=== PATIENT | female | born 1955 | race Caucasian/White ===

== ENCOUNTER 2017-01-04 06:45 | Inpatient (IN) | payer OTHER ==
--- NOTE | 2017-01-04 06:56 | EDPHY ---
H & P Time Seen by Provider: 01/04/17 06:55 - Personal History Tetanus Vaccine Date: < 10 YEARS Constitutional: Initial Vital Signs Temperature (C) 38.1 C 01/04/17 06:57 Heart Rate 75 01/04/17 06:57 Respiratory Rate 20 01/04/17 06:57 Blood Pressure 147/84 H 01/04/17 06:57 O2 Sat (%) 93 01/04/17 06:57 O2 Delivery Mode Nasal Cannula O2 (L/minute) 2 Allergies/Adverse Reactions: No Known Allergies Allergy (Verified 01/04/17 06:53) Home Medications: Medication Instructions Recorded Cymbalta 01/04/17 GABAPENTIN 01/04/17 Methylphenidate HCl [Ritalin 5mg 01/04/17 (*)] Nucynta 01/04/17 traMADol 01/04/17 Medical Decision Making - Diagnostics Imaging Results: Imaging Impressions Femur X-Ray 01/04/17 07:02 Impression: Left femoral neck fracture. ED Course/Re-evaluation: CHIEF COMPLAINT: Fall, hip pain HISTORY OF PRESENT ILLNESS: This patient is a 61 year old female who presents to the Emergency Department following a mechanical fall last night at approximately 2100 and presents today complaining of left hip pain. She reports that she was cleaning her house when she fell. It is unclear what caused her to fall but she denies dizziness or syncope and believes she may have tripped on her shag rug. She denies loss of consciousness or head trauma. Upon arrival, she complains of persistent left hip pain. She denies any additional injuries. She denies alcohol use within the last 24 hours. REVIEW OF SYSTEMS: A 10 point review of systems was performed and is negative with the exception of the elements mentioned in the history of present illness. PHYSICAL EXAM: HR 75, BP 147/84, O2 Sat 93, RR 20. Temp noted General Appearance: Alert, well hydrated, mildly slurred speech, and non-toxic appearing. Head: Atraumatic without scalp tenderness or obvious injury Eyes: Pupils equal, round, reactive to light and accommodation, EOMI, no trauma , no injection. Ears: Clear bilaterally, no perforation, normal landmarks Nose: Atraumatic, no rhinorrhea, clear. Throat: There is no erythema or exudates, no lesions, normal tonsils, mucus membranes moist. Neck: Supple, 2+ carotid upstroke, nontender, no lymphadenopathy. Respiratory: No retractions, no distress, no wheezes, and no accessory muscle use. Lungs are clear to auscultation bilaterally. Cardiovascular: Regular rate and rhythm, no murmurs, rubs, or gallops. Bilateral carotid, radial, dorsalis pedis, and posterior tibial pulses intact. Good capillary refill all extremities. Gastrointestinal: Abdomen is soft, nontender, non-distended, no masses, no rebound, no guarding, no peritoneal signs. Musculoskeletal: Limited ROM to left lower extremity secondary to pain. Tenderness over the left hip joint. Neurological: Alert, appropriate, and interactive. The patient has normal DTRs and non-focal cranial nerves, motor, sensory, and cerebellar exam. Skin: No rashes, good turgor, no nodules on palpation. Past medical history: Chronic pain, hypertension, hypercholesteremia. Past surgical history: Denies. Family history: Non-contributory. Social history: Lives alone independently. Denies alcohol use within the last 24 hours. DIFFERENTIAL DIAGNOSIS: The differential diagnosis for the patient's trauma included but was not limited to intracranial injury, long bone and pelvic bone fractures, spinal injury, intra-abdominal injury, and intra-thoracic injury. EKG INTERPRETATION: The 12 lead EKG was interpreted by myself: Sinus rhythm, rate 71; no ischemic changes. See hard copy and/or "tracemaster" electronic copy for interpretation. MEDICAL DECISION MAKING: This patient is a 61 year old female who presents complaining of left hip pain secondary to a fall last night at 2100. She is unable to provide a clear picture of what caused her to fall; when pressed, she refers to possibly tripping on a rug in her bathroom. She denies any syncope or dizziness prior to the fall. She does not present with any additional injuries. Though she denies alcohol use, her speech is mildly slurred and suggestive of possible intoxication. On exam, she presents with left hip tenderness limiting her range of motion to her LLE. There is no evidence of additional injury. Plan for x-ray of the left hip. Will proceed with labs and urinalysis with tox screen. 2mg IV morphine and 2L IV NS administered. 750: Imaging results reviewed and indicate left femoral neck fracture. Plan for consultation with orthopedic surgeon and subsequent admission to the hospitalist. EKG and chest x-ray ordered. 800: Consultation with Dr. Sahara Fields, hospitalist, who accepts admission to med/surg. 812: Consultation with Dr. Uriel Yeager, orthopedic surgeon. 1mg IV Dilaudid administered for pain prior to admission. - Data Points Laboratory Results: Laboratory Results 01/04/17 07:50 01/04/17 07:50 01/04/17 01/04/17 01/04/17 07:50 07:50 07:50 WBC 13.44 10^3/uL H 10^3/uL (3.80-9.50) RBC 4.72 10^6/uL 10^6/uL (4.18-5.33) Hgb 13.1 g/dL g/dL (12.6-16.3) Hct 37.6 % L % (38.0-47.0) MCV 79.7 fL L fL (81.5-99.8) MCH 27.8 pg L pg (27.9-34.1) MCHC 34.8 g/dL g/dL (32.4-36.7) RDW 14.3 % % (11.5-15.2) Plt Count 354 10^3/uL 10^3/uL (150-400) MPV 10.9 fL fL (8.7-11.7) Neut % (Auto) 84.6 % H % (39.3-74.2) Lymph % (Auto) 9.7 % L % (15.0-45.0) [place] % (Auto) 4.8 % % (4.5-13.0) Eos % (Auto) 0.0 % L % (0.6-7.6) Baso % (Auto) 0.4 % % (0.3-1.7) Nucleat RBC Rel Count 0.0 % % (0.0-0.2) Absolute Neuts (auto) 11.36 10^3/uL H 10^3/uL (1.70-6.50) Absolute Lymphs (auto) 1.31 10^3/uL 10^3/uL (1.00-3.00) Absolute Monos (auto) 0.65 10^3/uL 10^3/uL (0.30-0.80) Absolute Eos (auto) 0.00 10^3/uL L 10^3/uL (0.03-0.40) Absolute Basos (auto) 0.05 10^3/uL 10^3/uL (0.02-0.10) Absolute Nucleated RBC 0.00 10^3/uL 10^3/uL (0-0.01) Immature Gran % 0.5 % % (0.0-1.1) Immature Gran # 0.07 10^3/uL 10^3/uL (0.00-0.10) PT 13.0 SEC SEC (12.0-15.0) INR 0.99 (0.83-1.16) APTT 26.7 SEC SEC (23.0-38.0) Sodium 138 mEq/L mEq/L (134-144) Potassium 3.7 mEq/L mEq/L (3.5-5.2) Chloride 105 mEq/L mEq/L (97-110) Carbon Dioxide 24 mEq/l mEq/l (22-31) Anion Gap 9 mEq/L mEq/L (8-16) BUN 12 mg/dL mg/dL (7-23) Creatinine 0.6 mg/dL mg/dL (0.6-1.0) Estimated GFR > 60 Glucose 119 mg/dL H mg/dL (70-100) Calcium 9.1 mg/dL mg/dL (8.5-10.4) Creatine Kinase 196 IU/L H IU/L (0-156) CK-MB (CK-2) Fraction Pending CK-MB (CK-2) % Pending Creatine Kinase Interp Pending Ethyl Alcohol < 10 mg/dL mg/dL (0-10) Medications Given: Discontinued Medications Sodium Chloride (Ns) 1,000 mls @ 0 mls/hr IV ONCE ONE PRN Reason: Wide Open Stop: 01/04/17 08:03 Last Admin: 01/04/17 08:00 Dose: 1,000 mls Morphine Sulfate (Morphine) 2 mg IVP EDNOW ONE Stop: 01/04/17 07:51 Last Admin: 01/04/17 08:00 Dose: 2 mg Departure - Departure Disposition: [facility] Inpatient Acute Clinical Impression: Fracture of femoral neck, left, closed Qualifiers: Encounter type: initial encounter Qualified Code(s): S72.002A - Fracture of unspecified part of neck of left femur, initial encounter for closed fracture Condition: Fair Report Scribed for: Juan Carlos White Report Scribed by: Carole Shah Date of Report: 01/04/17 Time of Report: 06:56
[2017-01-04] MEDS ORDERED: HYDROmorphONE/DILAUDID 1 MG/ML SYR IVP ONE (08:00)
[2017-01-04] MEDS ORDERED: NS 1,000 ML IV ONE (08:02)
[2017-01-04 08:06] LABS: % IMMATURE GRANULYOCYTES 0.5 % (0.0-1.1); ABSOLUTE IMMATURE GRANULOCYTES 0.07 10^3/uL (0.00-0.10); ADD DIFF? NO; ADD MORPH? NO; ADD SCAN? NO; ATYPICAL LYMPHOCYTE FLAG 0 (0-99); FRAGMENT RBC FLAG 0 (0-99); HEMATOCRIT 37.6 % (38.0-47.0); HEMOGLOBIN 13.1 g/dL (12.6-16.3); LEFT SHIFT FLG 0 (0-99); LIPEMIA HEMOLYSIS FLAG 90 (0-99); MEAN CELL HEMOGLOBIN 27.8 pg (27.9-34.1); MEAN CELL HEMOGLOBIN CONCENTR. 34.8 g/dL (32.4-36.7); MEAN CELL VOLUME 79.7 fL (81.5-99.8); MEAN PLATELET VOLUME 10.9 fL (8.7-11.7); PLATELET CLUMPS FLAG 0 (0-99); PLATELET COUNT 354 10^3/uL (150-400); RED BLOOD CELL COUNT 4.72 10^6/uL (4.18-5.33); RED CELL DISTRIBUTION WIDTH 14.3 % (11.5-15.2)
[2017-01-04 08:21] LABS: APTT 26.7 SEC (23.0-38.0); INR 0.99 (0.83-1.16)
[2017-01-04 08:22] LABS: ANION GAP 9 mEq/L (8-16); CALCIUM 9.1 mg/dL (8.5-10.4); CARBON DIOXIDE 24 mEq/l (22-31); CHLORIDE 105 mEq/L (97-110); CREATININE 0.6 mg/dL (0.6-1.0); GLOMERULAR FILTRATION RATE > 60; GLUCOSE 119 mg/dL (70-100); POTASSIUM 3.7 mEq/L (3.5-5.2); SODIUM 138 mEq/L (134-144)
[2017-01-04 08:44] LABS: ETHANOL SERUM < 10 mg/dL (0-10)
--- NOTE | 2017-01-04 08:49 | CPEKG ---
Heart Rate: 71 RR Interval: 845 P-R Interval: 136 QRSD Interval: 100 QT Interval: 392 QTC Interval: 426 P [place]: 67 QRS [place]: 85 T Wave [place]: -90 EKG Severity - NORMAL ECG - EKG Impression: SINUS RHYTHM Electronically Signed By: Juan Carlos White 04-Jan-2017 14:34:52
[2017-01-04] MEDS ORDERED: HYDROmorphONE/DILAUDID 1 MG/ML SYR ONE (08:51)
[2017-01-04 08:54] LABS: CK-MB INTERPRETATION NEGATIVE (NEGATIVE)
[2017-01-04 08:57] LABS: CREATINE KINASE-MB FRACTION 3.32 ng/mL (0-3.19)
[2017-01-04 08:58] LABS: COLOR YELLOW; LEUKOCYTE ESTERASE,URINE NEGATIVE (NEGATIVE); NITRITE,URINE NEGATIVE (NEGATIVE)
[2017-01-04] MEDS ORDERED: ACETAMINOPHEN 325 MG TAB PO PRN (10:40)
[2017-01-04] MEDS ORDERED: ONDANSETRON 4 MG/2 ML VIAL IVP PRN (10:40)
--- NOTE | 2017-01-04 11:27 | GHP ---
[f rep st] HISTORY AND PHYSICAL DATE OF ADMISSION: 01/04/2017 CHIEF COMPLAINT: Hip pain. HISTORY: The patient is a 61-year-old female, who was cleaning her house last night, while wearing a bathrobe, and her bathroom got twisted around her and she fell to the ground, landing onto her lef t hip. She had immediate onset of severe left hip pain. She was unable ambulate. She denies any p receding dizziness or syncope, or hitting her head. She remembers falling and feels it was complete ly a mechanical fall. After falling, she was unable to ambulate, and since she lives alone, she lie d on the ground all night long. This morning, she dragged herself to a telephone to call for help. She did sleep on the ground last night and did actually get some rest. PAST MEDICAL HISTORY: 1. Post herpetic neuralgia. 2. Peptic ulcer disease. 3. Chronic pain. PAST SURGICAL HISTORY: Spinal surgery. MEDICATIONS: Please see computer record for full detailed list. ALLERGIES: No known drug allergies. SOCIAL HISTORY: She smokes 2 cigars per day. She denies alcohol or drug use. She lives alone. REVIEW OF SYSTEMS: Complete review of systems obtained. Review of systems is negative regarding co nstitutional, HEENT, GI, pulmonary, vascular, , hematology, skin, musculoskeletal, endocrine, psyc h. Pertinent positives as in HPI. FAMILY HISTORY: Reviewed, noncontributory to current complaint. PHYSICAL EXAMINATION: GENERAL: Well-developed, well-nourished female in no acute distress. VITAL SIGNS: Temperature 38.1, pulse 77, blood pressure 147/92, satting 93% on room air. EYES: Normal c onjunctivae. Pupils equal, round, react to light. ENT: Normal ears and nose. Hearing intact. MO UTH: Normal teeth. Oropharynx moist. NECK: Trachea midline. No thyromegaly. CHEST: Normal res piratory effort. LUNGS: Clear to auscultation bilaterally. CARDIOVASCULAR: Regular rate and rhyt hm. No murmur. No lower extremity edema. ABDOMEN: Soft, nontender. No hepatosplenomegaly. SKIN : Warm, dry, intact, without rash. MUSCULOSKELETAL: No cyanosis or clubbing. Strength 5/5, upper and lower extremities. NEUROLOGIC: Cranial nerves intact. Normal sensation to light touch. PSYC HIATRIC: Alert and oriented x3. Normal affect. Normal judgment. Normal memory. LABORATORY DATA: White count 13.44, hematocrit 37.6, MCV 79, platelets 354. Sodium 138, potassium 3.7, chloride 105, bicarb 24, BUN 12, creatinine 0.6, glucose 119. Alcohol level is negative. INR 0.99. DIAGNOSTIC DATA: EKG viewed by me. My personal interpretation is normal sinus rhythm. No ST or T wave changes. Hip x-ray shows a left femoral neck fracture. ASSESSMENT AND PLAN: 1. Hip fracture. Orthopedic Surgery has been consulted. We will coordinate with them timing of andrew gilda. She is medically optimized to proceed with OR. IV Dilaudid for pain control. 2. Leukocytosis and low-grade fever. I do not see any signs of infection. Her chest x-ray and uri nalysis are negative. I suspect she has some atelectasis due to her prolonged down time. 3. Microcytic anemia. Will check iron studies. 4. Chronic pain. Continues Nucynta. 5. Post herpetic neuralgia. Continue gabapentin. CODE STATUS: Full. ADMISSION STATUS: Will admit to inpatient. Greater than 2 midnights will be required for stabiliza tion. PLAN: DVT prophylaxis. Subcu Lovenox will be initiate post surgery. /[id number]/MODL
[2017-01-04] MEDS: oxyCODONE IR 5 MG TAB PO PRN ×3 (11:29→22:59)
[2017-01-04] MEDS: NS 1,000 ML IV SCH ×2 (11:39→23:00)
[2017-01-04] MEDS: HYDROmorphONE/DILAUDID 1 MG/ML SYR IVP PRN ×2 (14:24→17:40)
--- NOTE | 2017-01-04 19:23 | GCON ---
[f rep st] CONSULTATION DATE OF CONSULTATION: 01/04/2017 REASON FOR CONSULTATION: I was asked by Dr. Sahara Fields for evaluation of a left hip fracture. HISTORY OF PRESENT ILLNESS: The patient is a 61-year-old female who fell and sustained a left hip fracture. She was admitted to the hospitalist service. Initial discussion with Dr. Uriel Yeager who asked if I would see the patient to see if she is a good candidate for a total hip replacement. The patient has pain in the extremity at this time. She has pain in her left hip, is unable to walk. Denies hitting her head. PAST MEDICAL HISTORY: Significant for postherpetic neuralgia, peptic ulcer disease, chronic pain. PAST SURGICAL HISTORY: She had a previous spinal surgery. MEDICATIONS: Please see computer list. ALLERGIES: No known drug allergies. SOCIAL HISTORY: Smokes. Denies alcohol or drug use. Lives alone. PHYSICAL EXAMINATION: GENERAL: The patient is in no acute distress. Pleasant and cooperative for exam. EXTREMITIES: Left lower extremity is examined. The leg is slightly shortened, externally rotated. Pain with axillary load. Neurovascularly intact. VITAL SIGNS: Stable. LABORATORY DATA: X-rays reviewed which show a displaced left femoral neck fracture. ASSESSMENT: The patient has a left femoral neck fracture. Discussed operative and nonoperative interventions with the patient. Recommend proceeding with left total hip arthroplasty. Risks and benefits were discussed with the patient including bleeding, infection, damage to nerves and vessels, need for further surgery, risk of blood clots, blood clots going to her lungs, rare things like stroke, heart attack and , specific to hip replacements including dislocation, fracture and leg length change. The patient expressed understanding, and informed consent will be obtained. The patient to undergo surgery on 01/05/2017. /[id number]/MODL MTDD
[2017-01-04] MEDS: GABAPENTIN 300 MG CAP PO SCH (19:44)
[2017-01-04] MEDS: traMADol 50 MG TAB PO PRN (19:44)
[2017-01-04] MEDS: DULoxetine 60 MG CAP PO SCH (19:45)
[2017-01-04] MEDS: TAPENTADOL HCL 50 MG TAB PO SCH (19:45)
[2017-01-05] MEDS: HYDROmorphONE/DILAUDID 1 MG/ML SYR IVP PRN ×3 (01:40→10:44)
[2017-01-05] MEDS: traMADol 50 MG TAB PO PRN ×2 (01:42→18:03)
--- NOTE | 2017-01-05 01:49 | GCON ---
[f rep st] CONSULTATION ORTHOPEDIC ER CONSULT. CHIEF COMPLAINT: Left hip pain. DIAGNOSIS: Displaced left femoral neck fracture. HISTORY OF PRESENT ILLNESS: The patient is a 61-year-old female who is admitted today for a fall ye sterday. She did not recall why she fell. She [place] at [place] alone [place] [address] [place] [facility]. She does have an [place] Winkler at home. She came in today with left hip pain. Please see details of ER and admitting H and P. PHYSICAL EXAMINATION: Pertinent orthopedic examination reveals a well right leg, bilateral upper ex tremities, without any trauma or pain. Left lower extremity is short and externally rotated. Skin looks healthy. She has a slight body habitus. X-RAYS: Reviewed, showed a displaced femoral neck fracture on the left side. IMPRESSION AND RECOMMENDATION: Displaced femoral neck fracture. Will likely need arthroplastic con sideration. She is a community ambulator. She likes to walk her dog. We will go ahead and talk wi th our arthroplasty team and see if we can get her on the schedule RIKKI. Meanwhile, she is on the ospitalist service, making sure that she is medically fit for surgery. Risks, benefits, expectation s, and alternatives were discussed with the patient. She would like to proceed with left hip arthro plasty options. /[id number]/MODL
[2017-01-05] MEDS: oxyCODONE IR 5 MG TAB PO PRN ×3 (04:36→19:07)
[2017-01-05 05:24] LABS: % IMMATURE GRANULYOCYTES 0.3 % (0.0-1.1); ABSOLUTE IMMATURE GRANULOCYTES 0.05 10^3/uL (0.00-0.10); ADD DIFF? NO; ADD MORPH? NO; ADD SCAN? NO; ATYPICAL LYMPHOCYTE FLAG 0 (0-99); FRAGMENT RBC FLAG 0 (0-99); HEMATOCRIT 36.8 % (38.0-47.0); HEMOGLOBIN 12.6 g/dL (12.6-16.3); LEFT SHIFT FLG 0 (0-99); LIPEMIA HEMOLYSIS FLAG 90 (0-99); MEAN CELL HEMOGLOBIN 27.6 pg (27.9-34.1); MEAN CELL HEMOGLOBIN CONCENTR. 34.2 g/dL (32.4-36.7); MEAN CELL VOLUME 80.7 fL (81.5-99.8); MEAN PLATELET VOLUME 11.7 fL (8.7-11.7); PLATELET CLUMPS FLAG 20 (0-99); PLATELET COUNT 337 10^3/uL (150-400); RED BLOOD CELL COUNT 4.56 10^6/uL (4.18-5.33); RED CELL DISTRIBUTION WIDTH 14.6 % (11.5-15.2)
[2017-01-05 05:46] LABS: ANION GAP 11 mEq/L (8-16); CALCIUM 8.8 mg/dL (8.5-10.4); CARBON DIOXIDE 18 mEq/l (22-31); CHLORIDE 106 mEq/L (97-110); CREATININE 0.5 mg/dL (0.6-1.0); GLOMERULAR FILTRATION RATE > 60; GLUCOSE 123 mg/dL (70-100); POTASSIUM 3.5 mEq/L (3.5-5.2); SODIUM 135 mEq/L (134-144)
[2017-01-05 05:55] LABS: % SATURATION 9 % (20-55); TOTAL IRON BINDING CAPACITY 382 ug/dL (260-490)
[2017-01-05] MEDS ORDERED: TRANEXAMIC ACID 3,000 MG in NS 50 ML IRR ONE (06:00)
[2017-01-05] MEDS ORDERED: ACETAMINOPHEN 325 MG TAB PO ONE (06:00)
[2017-01-05] MEDS ORDERED: ROPIVACAINE 0.2% 80 MG, EPINEPHrine 0.2 MG, KETOROLAC TROMETHAMINE 30 MG in BAG 0 ML IU ONE (06:00)
[2017-01-05] MEDS ORDERED: FAMOTIDINE 20 MG TAB PO ONE (06:00)
[2017-01-05] MEDS ORDERED: ceFAZolin 2 GM/DEXTROSE 100 ML IV ONE (06:00)
[2017-01-05 06:21] LABS: FERRITIN - BCH 25.8 ng/mL (6.2-264.0)
[2017-01-05] MEDS: CYANO/VITAMIN B12 1000 MCG TAB PO SCH ×2 (08:56→15:14)
[2017-01-05] MEDS: DULoxetine 60 MG CAP PO SCH ×3 (08:56→19:51)
[2017-01-05] MEDS: TAPENTADOL HCL 50 MG TAB PO SCH ×2 (08:59→19:50)
[2017-01-05] MEDS ORDERED: ENOXAPARIN 40 MG/0.4 ML SYR SC SCH (09:00)
[2017-01-05] MEDS ORDERED: TRANEXAMIC ACID 3,000 MG/50 ML BAG IRR ONE (10:35)
[2017-01-05] MEDS ORDERED: CEFAZOLIN 2 GM/DEXTROSE/100 ML BAG IV ONE (11:03)
[2017-01-05] MEDS ORDERED: MIDAZOLAM 2 MG/2 ML VIAL ONE (11:56)
[2017-01-05] MEDS ORDERED: fentaNYL 100 MCG/2 ML INJ ONE ×3 (12:15→14:03)
[2017-01-05] MEDS ORDERED: PROPOFOL 200 MG/20 ML VIAL ONE (12:16)
[2017-01-05] MEDS ORDERED: TEMAZEPAM 15 MG CAP PO PRN (12:36)
[2017-01-05] MEDS ORDERED: POLYETHYLENE GLYCOL 3350 17 GM PKT PO PRN (12:36)
[2017-01-05] MEDS ORDERED: BISACODYL 10 MG SUPP PR PRN (12:36)
[2017-01-05] MEDS ORDERED: PHARMACY PAIN CONSULT 1 EA MISC PRN (12:36)
[2017-01-05] MEDS ORDERED: MAGNESIUM HYDROXIDE 30 ML UDCUP PO PRN (12:36)
[2017-01-05] MEDS ORDERED: METOCLOPRAMIDE 10 MG/2 ML VIAL IVP PRN (12:36)
[2017-01-05] MEDS ORDERED: LACTULOSE 20 GM/30 ML UDCUP PO PRN (12:36)
[2017-01-05] MEDS ORDERED: DIPHENOXYLATE/ATROPINE LOMOTIL 1 TAB PO PRN (12:36)
[2017-01-05] MEDS ORDERED: diphenhydrAMINE 25 MG CAP PO PRN (12:36)
[2017-01-05] MEDS ORDERED: LR 1,000 ML IV SCH (13:00)
--- NOTE | 2017-01-05 13:01 | CPEKG ---
Heart Rate: 67 RR Interval: 896 P-R Interval: 140 QRSD Interval: 98 QT Interval: 424 QTC Interval: 448 P [place]: 53 QRS [place]: 67 T Wave [place]: 8 EKG Severity - NORMAL ECG - EKG Impression: SINUS RHYTHM Electronically Signed By: Enrique Brock 05-Jan-2017 14:28:16
--- NOTE | 2017-01-05 13:02 | SOAPPROG ---
SOAP Progress Note Assessment/Plan: Assessment: 61 yo female, s/p fall now w/ left displaced hip fracture, scheduled to undergo surgery by dr. light for left ABRAHAM on 01/05/17 -pain control per primary -proph per primary -sx per dr. light for left ABRAHAM, orthopedic recommendations post surgery from him. dr. wills and staff signing off, continued medical management per primary team, ortho surgical recommendations per dr. light Plan: 01/05/17 13:02 Subjective: patient denies any issues over night, reports her pain is well controlled, slept well, anxious for surgery to be over as she is scheduled to undergo left abraham by dr. light today. denies any numbness/tingling, denies cp/sob, on medical service Objective: LLE: no erythema/edema/ecchymosis, ttp over left hip, no hip rom assessed, full ankle/digital rom, nvid w/ brisk cap refill, pt/dp 2+ Vital Signs Temp Pulse Resp BP Pulse Ox 36.6 C 82 18 108/64 97 01/05/17 10:48 01/05/17 10:48 01/05/17 07:17 01/05/17 10:48 01/05/17 10:48 Laboratory Results 01/05/17 04:59 01/05/17 04:59 01/04/17 01/05/17 01/06/17 05:59 05:59 05:59 Intake Total 3057 400 Output Total 2950 450 Balance 107 -50 PT 13.0 SEC (12.0-15.0) 01/04/17 07:50 INR 0.99 (0.83-1.16) 01/04/17 07:50 ICD10 Worksheet Patient Problems: Problems Problem Status Onset Fracture of femoral neck, left, closed Acute
--- NOTE | 2017-01-05 13:53 | POSTOPPROG ---
Post Op Note Date of Operation: 01/05/17 Surgeon: Christopher Hidalgo Resist Coater Developer: Camila Hidalgo PAc Anesthesiologist: Samantha Anesthesia: GET(General Endotracheal) Pre-op Diagnosis: Left displaced femoral neck fx Post-op Diagnosis: same Indication: pain Procedure: L ABRAHAM Findings: fx femoral neck Inf/Abcess present in the surg proc area at time of surgery?: No EBL: 100-500
[2017-01-05] MEDS ORDERED: ceFAZolin 2 GM/DEXTROSE 100 ML IV SCH (14:00)
[2017-01-05] MEDS ORDERED: hydrALAZINE 20 MG/ML VIAL IVP ONE (14:15)
[2017-01-05] MEDS ORDERED: HYDROmorphONE/DILAUDID 1 MG/ML SYR ONE (14:17)
[2017-01-05] MEDS: CYCLOBENZAPRINE 10 MG TAB PO PRN ×2 (15:05→22:39)
--- NOTE | 2017-01-05 16:23 | HOSPPROG ---
Hospitalist Progress Note Assessment/Plan: * Hip fracture s/p left ABRAHAM -start Lovenox in am * Anemia - possible mild iron deficiency -clarify colonoscopy status * Chronic pain -Nucynta * Post-herpetic neuralgia -gabapentin * Leukocytosis -no evidence for infection * Low TSH - check free t4 Subjective: No complaints post surgery Objective: Vital Signs Temp Pulse Resp BP Pulse Ox 36.7 C 73 18 140/85 H 100 01/05/17 14:57 01/05/17 14:57 01/05/17 14:57 01/05/17 14:57 01/05/17 14:57 Laboratory Results 01/05/17 04:59 01/05/17 04:59 01/04/17 01/05/17 01/06/17 05:59 05:59 05:59 Intake Total 3057 1560 Output Total 2950 650 Balance 107 910 PT 13.0 SEC (12.0-15.0) 01/04/17 07:50 INR 0.99 (0.83-1.16) 01/04/17 07:50 Ekg viewed, my personal interpretation is - NSR, no ischemic change Pelvic Xray - looks good post-op - Physical Exam Constitutional: no apparent distress, appears nourished, not in pain Cardiovascular: regular rate and rhythym, no murmur, rub, or gallop Respiratory: no respiratory distress, no rales or rhonchi, clear to auscultation Gastrointestinal: normoactive bowel sounds, soft, non-tender abdomen, no palpable masses Skin: no rashes or abrasions, no fluctuance, no induration Psychiatric: interacting appropriately, not anxious, not encephalopathic, thought process linear ICD10 Worksheet Patient Problems: Problems Problem Status Onset Fracture of femoral neck, left, closed Acute
[2017-01-05] MEDS: ACETAMINOPHEN 325 MG TAB PO SCH ×2 (18:02→22:30)
[2017-01-05] MEDS: ceFAZolin 2 GM/DEXTROSE 100 ML IV SCH (18:03)
[2017-01-05] MEDS: SENNOSIDES/DOCUSATE SODIUM TAB PO SCH (19:51)
[2017-01-05] MEDS: FAMOTIDINE 20 MG TAB PO SCH (19:51)
[2017-01-05] MEDS: GABAPENTIN 300 MG CAP PO SCH (19:52)
--- NOTE | 2017-01-05 22:01 | GOP ---
[f rep st] OPERATIVE REPORT DATE OF OPERATION: 01/05/2017 SURGEON: Rubi Hidalgo MD PREOPERATIVE DIAGNOSIS: Left femoral neck fracture, displaced. POSTOPERATIVE DIAGNOSIS: Left femoral neck fracture, displaced. PROCEDURE PERFORMED: Left total hip arthroplasty with x-ray. FINDINGS: INDICATIONS: The patient has a fracture of the hip which has failed medical management. The patient understands the treatment options including continued non-operative care and has selected surgical intervention. The patient has decided to undergo total hip arthroplasty via the direct anterior approach, understanding the risks of the procedure including, but not limited to, neurovascular injury, infection, persistent pain, component wear and loosening, deep venous thrombosis, pulmonary embolism, limb length inequality, hip instability (including dislocation), and intra-operative fractures. DESCRIPTION OF PROCEDURE: After proper identification of the patient including verification and marking the surgical site, the patient was brought to the operating room and placed in the supine position. All bony prominences were well padded. Anesthesia was induced without complication and intravenous prophylactic antibiotics were administered prior to skin incision. The operative leg was placed in the Trump[place] Arch table extension and the well leg in a Yell[place]in leg renteria. The patient was prepped and draped in the usual sterile fashion. The C-arm was draped for intra-operative fluoroscopy to check acetabular position, femoral component position including leg length and femoral offset. Attention was then drawn to surgical exposure of the hip. An incision was made with a #10 Bard Logan blade starting 3 cm lateral and 3 cm distal to the anterior superior iliac spine measuring 8-10 cm and coursing distally toward the greater trochanter. The skin and subcutaneous tissues were divided sharply down to the fascia juan. The fascia juan was incised in line with the skin incision exposing the underlying tensor fascia juan muscle. The muscle was bluntly elevated from the fascia and the first extracapsular Cobra retractor was placed laterally at the junction of the superior femoral neck and greater trochanter. The lateral femoral circumflex vessels were identified, cauterized , and divided with the Aquamantys bipolar cautery. The deep investing fascia of the TFL was divided to allow proper mobilization of the muscle preventing damage during the retraction. The reflected head of the rectus femoris muscle was elevated off the anterior hip capsule and a medial Cobra retractor was placed just proximal to the lesser trochanter. The anterior capsulotomy was made sharply from the superolateral acetabulum to the saddle junction of the superior femoral neck and greater trochanter, then coursing inferomedial towards the lesser trochanter. The retractors were then placed in the intracapsular position for femoral neck osteotomy. Corresponding to pre-operative templating, the osteotomy was made with the oscillating saw carefully protecting the greater trochanter and soft tissues. The femoral head was removed from the acetabulum with a corkscrew and confirmed to be a displaced femoral neck fracture. The Arch table extension was then placed in 40 degrees external rotation. Attention was then drawn to the acetabular preparation. After placement of the anterior and posterior Cobra retractors outside the labrum and intracapsular, the circumferential labrum was removed sharply. The foveal contents were then removed and hemostasis obtained with cautery. The first reamer selected was sized using the removed femoral head. Reaming began with medialization and then commenced in 2 mm increments at 45 degrees of abduction and 15 degrees of anteversion using fluoroscopic navigation. Reaming ceased 1 mm less than the definitive acetabular component and corresponded to the pre-operative templating. The final acetabular component was inserted using fluoroscopy to achieve proper orientation yielding excellent purchase and stability in the acetabulum. The final acetabular liner was then placed and its seating confirmed. Attention was then turned to the femur. The Arch table extension was placed in extension and adduction, delivering the osteotomized femoral neck into the wound. A 2-pronged femoral elevator was placed at the calcar and another at the tip of the greater trochanter. The posterolateral capsule was released with cautery allowing mobilization of the femur lateral and anterior for preparation. The external rotators were visualized and preserved. A curette and rongeur were used to open the starting point for broaching. Serial broaching started with the #0 broach and ended with the broach that exhibited excellent fit in the proximal femur. A change in pitch during mallet strikes was accompanied by the inability to advance the broach any further. The trial reduction was performed and fluoroscopic navigation was utilized to check limb length. Adjustments were made to equalize limb length accordingly. After the final trials were accepted they were removed and the wound was copiously lavaged. The femoral component was seated to the same depth as the final broach and the femoral head was impacted onto the clean trunnion. The hip was then reduced for the final time and once more fluoroscopy was used to check that limb length equality was achieved. The wound was irrigated and closed in layers, the fascia juan with 2-0 Quill, the subcutaneous tissue with 2-0 Quill, and the skin with Dermabond. Sterile dressings were applied. Final sharps and sponge counts were accurate. The patient was then transferred to a hospital bed and brought to the recovery room in stable condition. IMPLANTS: Accolade II, size 3 at 127. Acetabular component 48 mm Tritanium. The liner is a Trident X3 at 32 mm. The head is a Biolox Delta 32 mm +0. /[id number]/MODL MTDD
[2017-01-05] MEDS: ASPIRIN 325 MG TAB PO SCH (22:30)
[2017-01-06] MEDS: ceFAZolin 2 GM/DEXTROSE 100 ML IV SCH (00:28)
[2017-01-06] MEDS: oxyCODONE IR 5 MG TAB PO PRN ×5 (01:19→19:12)
[2017-01-06] MEDS: ACETAMINOPHEN 325 MG TAB PO SCH ×3 (05:14→17:09)
[2017-01-06 05:43] LABS: % IMMATURE GRANULYOCYTES 0.3 % (0.0-1.1); ABSOLUTE IMMATURE GRANULOCYTES 0.05 10^3/uL (0.00-0.10); ADD DIFF? NO; ADD MORPH? NO; ADD SCAN? NO; ATYPICAL LYMPHOCYTE FLAG 0 (0-99); FRAGMENT RBC FLAG 0 (0-99); HEMATOCRIT 37.8 % (38.0-47.0); HEMOGLOBIN 12.5 g/dL (12.6-16.3); LEFT SHIFT FLG 10 (0-99); LIPEMIA HEMOLYSIS FLAG 80 (0-99); MEAN CELL HEMOGLOBIN 27.4 pg (27.9-34.1); MEAN CELL HEMOGLOBIN CONCENTR. 33.1 g/dL (32.4-36.7); MEAN CELL VOLUME 82.7 fL (81.5-99.8); MEAN PLATELET VOLUME 11.2 fL (8.7-11.7); PLATELET CLUMPS FLAG 70 (0-99); PLATELET COUNT 289 10^3/uL (150-400); RED BLOOD CELL COUNT 4.57 10^6/uL (4.18-5.33); RED CELL DISTRIBUTION WIDTH 15.1 % (11.5-15.2)
[2017-01-06 06:27] LABS: ANION GAP 9 mEq/L (8-16); CALCIUM 8.9 mg/dL (8.5-10.4); CARBON DIOXIDE 19 mEq/l (22-31); CHLORIDE 109 mEq/L (97-110); CREATININE 0.6 mg/dL (0.6-1.0); GLOMERULAR FILTRATION RATE > 60; GLUCOSE 112 mg/dL (70-100); POTASSIUM 3.7 mEq/L (3.5-5.2); SODIUM 137 mEq/L (134-144)
[2017-01-06] MEDS: DULoxetine 60 MG CAP PO SCH ×2 (07:45→19:11)
[2017-01-06] MEDS: ASPIRIN 325 MG TAB PO SCH (07:45)
[2017-01-06] MEDS: traMADol 50 MG TAB PO PRN ×2 (07:45→17:09)
[2017-01-06] MEDS: SENNOSIDES/DOCUSATE SODIUM TAB PO SCH ×2 (07:46→19:11)
[2017-01-06] MEDS: CYCLOBENZAPRINE 10 MG TAB PO PRN ×2 (07:46→15:05)
[2017-01-06] MEDS: CYANO/VITAMIN B12 1000 MCG TAB PO SCH (07:47)
[2017-01-06] MEDS: FAMOTIDINE 20 MG TAB PO SCH ×2 (07:48→19:11)
--- NOTE | 2017-01-06 10:54 | SOAPPROG ---
SOAP Progress Note Assessment/Plan: Assessment: Cristopher is doing well POD 1 s/p L ABRAHAM ant approach pain management: pain is well controlled on oral pain meds. recommend trying flexeril VTE ppx: recommend ASA 325 mg daily, continue thigh high ERIC hose Anemia: level expected initially postop, asymptomatic Activity precautions: WBAT with FWW for 7-14 weeks leukocytosis: patient received decadron preop, may be cause D/c planning: d/c once patient passes PT and hospitalist deems appropriate to d/ c. Per patient, she has friends who are willing to help her postop Plan: 01/06/17 10:51 01/06/17 10:53 Subjective: Cristopher is resting comfortably in bed, states moderate pain, denies SOB, chest pain and n/v Objective: Vital Signs Temp Pulse Resp BP Pulse Ox 36.9 C 87 14 98/59 L 93 01/06/17 07:40 01/06/17 07:40 01/06/17 07:40 01/06/17 07:40 01/06/17 07:40 Laboratory Results 01/06/17 05:20 01/06/17 05:20 01/05/17 01/06/17 01/07/17 05:59 05:59 05:59 Intake Total 3057 2810 200 Output Total 2950 1350 Balance 107 1460 200 PT 13.0 SEC (12.0-15.0) 01/04/17 07:50 INR 0.99 (0.83-1.16) 01/04/17 07:50 LLE: incision dressing is clean and dry, NVI, +pf/df ICD10 Worksheet Patient Problems: Problems Problem Status Onset Fracture of femoral neck, left, closed Acute
[2017-01-06] MEDS: TAPENTADOL HCL 50 MG TAB PO SCH ×2 (12:40→19:12)
--- NOTE | 2017-01-06 17:26 | HOSPPROG ---
Hospitalist Progress Note Assessment/Plan: * Hip fracture s/p left ABRAHAM -Lovenox discontinued by ortho -recommended ASA for DVT prophylaxis * Anemia - possible mild iron deficiency -clarify colonoscopy status * Chronic pain -Nucynta * Post-herpetic neuralgia -gabapentin * Leukocytosis -no evidence for infection * Subclinical hypothyroidism Subjective: no complaints, feeling well Objective: Vital Signs Temp Pulse Resp BP Pulse Ox 37 C 84 14 90/55 L 96 01/06/17 16:00 01/06/17 16:00 01/06/17 16:00 01/06/17 16:00 01/06/17 16:00 Laboratory Results 01/06/17 05:20 01/06/17 05:20 01/05/17 01/06/17 01/07/17 05:59 05:59 05:59 Intake Total 3057 2810 1200 Output Total 2950 1350 Balance 107 1460 1200 PT 13.0 SEC (12.0-15.0) 01/04/17 07:50 INR 0.99 (0.83-1.16) 01/04/17 07:50 - Physical Exam Constitutional: no apparent distress, appears nourished, not in pain Cardiovascular: regular rate and rhythym, no murmur, rub, or gallop Respiratory: no respiratory distress, no rales or rhonchi, clear to auscultation Gastrointestinal: normoactive bowel sounds, soft, non-tender abdomen, no palpable masses Skin: no rashes or abrasions, no fluctuance, no induration Neurologic: AAOx3, sensation intact bilaterally Psychiatric: interacting appropriately, not anxious, not encephalopathic, thought process linear ICD10 Worksheet Patient Problems: Problems Problem Status Onset Fracture of femoral neck, left, closed Acute
[2017-01-06] MEDS: GABAPENTIN 300 MG CAP PO SCH (19:11)
[2017-01-06 23:31] VITALS: RESP 16
[2017-01-07] MEDS: ACETAMINOPHEN 325 MG TAB PO SCH ×3 (02:08→11:40)
[2017-01-07] MEDS: oxyCODONE IR 5 MG TAB PO PRN ×3 (02:09→11:41)
[2017-01-07 05:33] LABS: % IMMATURE GRANULYOCYTES 0.4 % (0.0-1.1); ABSOLUTE IMMATURE GRANULOCYTES 0.06 10^3/uL (0.00-0.10); ADD DIFF? NO; ADD MORPH? NO; ADD SCAN? NO; ATYPICAL LYMPHOCYTE FLAG 0 (0-99); FRAGMENT RBC FLAG 0 (0-99); HEMATOCRIT 31.9 % (38.0-47.0); HEMOGLOBIN 10.8 g/dL (12.6-16.3); LEFT SHIFT FLG 20 (0-99); LIPEMIA HEMOLYSIS FLAG 90 (0-99); MEAN CELL HEMOGLOBIN 27.1 pg (27.9-34.1); MEAN CELL HEMOGLOBIN CONCENTR. 33.9 g/dL (32.4-36.7); MEAN CELL VOLUME 80.2 fL (81.5-99.8); MEAN PLATELET VOLUME 11.4 fL (8.7-11.7); PLATELET CLUMPS FLAG 0 (0-99); PLATELET COUNT 289 10^3/uL (150-400); RED BLOOD CELL COUNT 3.98 10^6/uL (4.18-5.33); RED CELL DISTRIBUTION WIDTH 15.1 % (11.5-15.2)
[2017-01-07 07:28] VITALS: BP 109/69; PULSE 75; TEMP 98.5; O2SAT 92
[2017-01-07] MEDS: TAPENTADOL HCL 50 MG TAB PO SCH (08:34)
[2017-01-07] MEDS: CYANO/VITAMIN B12 1000 MCG TAB PO SCH (08:34)
[2017-01-07] MEDS: FAMOTIDINE 20 MG TAB PO SCH (08:35)
[2017-01-07] MEDS: ASPIRIN 325 MG TAB PO SCH (08:35)
[2017-01-07] MEDS: DULoxetine 60 MG CAP PO SCH (08:35)
--- NOTE | 2017-01-07 09:08 | SOAPPROG ---
SOAP Progress Note Assessment/Plan: Assessment: Cristopher is doing well POD 2 s/p L ABRAHAM ant approach pain management: pain is well controlled on oral pain meds. recommend trying flexeril VTE ppx: recommend ASA 325 mg daily, continue thigh high ERIC hose Anemia: level expected initially postop, asymptomatic Activity precautions: WBAT with FWW for 7-14 days D/c planning:d/c to SNF per patient. Appreciate hospitalist and case management assistance coordinating. Follow up with Dr. light's office 01/28/17 for postop appt, earlier if concerns arise Plan: 01/06/17 10:51 01/06/17 10:53 01/07/17 09:06 Subjective: Cristopher is doing well today, states pain has improved Objective: Vital Signs Temp Pulse Resp BP Pulse Ox 36.9 C 75 16 109/69 92 01/07/17 07:27 01/07/17 07:27 01/07/17 07:27 01/07/17 07:27 01/07/17 07:27 Laboratory Results 01/07/17 05:04 01/06/17 05:20 01/06/17 01/07/17 01/08/17 05:59 05:59 05:59 Intake Total 2810 1200 300 Output Total 1350 Balance 1460 1200 300 PT 13.0 SEC (12.0-15.0) 01/04/17 07:50 INR 0.99 (0.83-1.16) 01/04/17 07:50 incision dressing is clean and dry, NVI, mild ecchymosis ICD10 Worksheet Patient Problems: Problems Problem Status Onset Fracture of femoral neck, left, closed Acute
[2017-01-07] MEDS ORDERED: ENOXAPARIN 40 MG/0.4 ML SYR SC SCH (09:15)
[2017-01-07] MEDS: SENNOSIDES/DOCUSATE SODIUM TAB PO SCH (09:54)
--- NOTE | 2017-01-07 10:16 | PDIAF ---
- Diagnosis Code Status: Full Code - Medication Management Discharge Medications: Medications to Continue on Transfer Cholecalciferol Vit D3 [Vitamin D3 (*)] 1,000 units PO DAILY 01/04/17 [Last Taken 01/03/17] Cyanocobalamin [Vitamin B12 (*)] 1,000 mcg PO DAILY 01/04/17 [Last Taken ] DULoxetine [Cymbalta 60 MG (*)] 60 mg PO BID 01/04/17 [Last Taken 01/03/17 09:00 ] Gabapentin [Neurontin 300 MG (*)] 300 mg PO HS 01/04/17 [Last Taken 01/02/17] Methylphenidate HCl [Ritalin 20mg (*)] 20 mg PO BID 01/04/17 [Last Taken 09:00] Tapentadol HCl [Nucynta 50 MG (*)] 50 mg PO HS 01/04/17 [Last Taken 01/02/17] Tapentadol HCl [Nucynta 50 MG (*)] 100 mg PO DAILY 01/04/17 [Last Taken 01/03/17 ] traMADol [Ultram 50 mg (*)] 50 mg PO Q6HRS PRN 01/04/17 [Last Taken Unknown] Enoxaparin [Lovenox 40 MG (*)] 40 mg SC DAILY #10 syr 01/07/17 [Last Taken Unknown] oxyCODONE IR [Oxycodone Ir (*)] 5 - 10 mg PO Q4 PRN #20 tab 01/07/17 [Last Taken Unknown] Discharge Medications: Refer to the Discharge Home Medication list for PRN reason. - Orders Diet Recommendation: no restrictions on diet Diet Texture: Regular Texture Diet Activity/Weight Bearing Restrictions: Lovenox prophylaxis as ordered for 10 days , ASA 325mg thereafter for an additional 2 weeks Additional: May shower, please cover incision dressing (chiang one) with saran wrap or [id number] before showering as the incision dressing is water resistant, but not waterproof. Keep the incision (chiang) dressing clean and dry. If the incision dressing gets soiled or wet underneath, change dressing to the dressing given to you by the hospital. (chiang dressing will turn black if drainage occurs). Remove incision dressing (chiang one) two weeks after surgery. Leave steri strips alone. They will fall off on their own. Do not have anyone else remove the incision dressing prior to the stated recommendation (2 weeks after surgery). If there are incision concerns, contact Dr. Block office. (Camila or Dr. Hidalgo may remove earlier if concerns arise). If incision site (chiang dressing) has drainage call Dr. Block office, . Camila and Dr. Hidalgo may ask you to come into the office for further evaluation - Follow Up Care Current Providers and Referrals: Patient,NotPresent [Unknown] - As per Instructions Christopher Hidalgo MD [Medical Doctor] - follow up in 2 weeks
[2017-01-07] MEDS: CYCLOBENZAPRINE 10 MG TAB PO PRN (13:41)
--- NOTE | 2017-01-07 16:41 | GDS ---
[f rep st] DISCHARGE SUMMARY DISCHARGE DIAGNOSES: 1. Hip fracture status post left total hip arthroplasty. 2. Anemia. 3. Chronic pain. 4. Postherpetic neuralgia. 5. Subclinical hypothyroidism. HISTORY: The patient is a 61-year-old female who fell mechanically and sustained a left hip fractur e. She was admitted to the hospital and underwent a left total hip arthroplasty by Dr. Hidalgo. Her postoperative course was unremarkable. She is transferring to [facility] y at discharge. DISCHARGE MEDICATIONS: Please see computer record for full detailed list. NEW MEDICATIONS: 1. Lovenox 40 mg subcu daily for 10 days can transition to aspirin 325 mg p.o. daily for 2 weeks th ereafter. 2. Oxycodone 5-10 mg every 4 hours as needed. ADDITIONAL DISCHARGE INSTRUCTIONS: Follow up with Dr. Hidalgo in 2 weeks. Greater than 30 minutes' time was spent arranging this discharge. Patient was seen and examined by me on the day of discharge. /[id number]/MODL
== END 2017-01-07 14:35 | DRG 470 ==
LOC: EDUNIT# → F3N 09:18
PROVIDERS: ADMIT Internal Medicine; ATTEND Internal Medicine
PROC: 0SRB04Z Replacement of Left Hip Joint with Ceramic on Polyethylene Synthetic Substitute, Open Approach (ICD-10-PCS; principal; 2017-01-04)
DX: S72.002A Fracture of unspecified part of neck of left femur, initial encounter for closed fracture (principal); W01.0XXA Fall on same level from slipping, tripping and stumbling without subsequent striking against object, initial encounter; Y92.009 Unspecified place in unspecified non-institutional (private) residence as the place of occurrence of the external cause; Y93.E9 Activity, other interior property and clothing maintenance; D64.9 Anemia, unspecified; G89.29 Other chronic pain; B02.29 Other postherpetic nervous system involvement; E02 Subclinical iodine-deficiency hypothyroidism
CPT/HCPCS: 80305; 96374; 97116-GP; 97161-GP; 97166-GO; 97535-GO; G0480; G8978-GP-CJ; G8979-GP-CI; G8987-GO-CJ; G8988-GO-CI; J0171; J0690; J1170; J1650; J1885; J2250; J2405; J2704; J2795; J3010

== ENCOUNTER → 2017-10-06 | Outpatient (CLI) | payer OTHER | LOC: FLAB 09:24 | PROVIDERS: ATTEND Physician Assistant Medical | DX: M41.86 Other forms of scoliosis, lumbar region (principal); M41.84 Other forms of scoliosis, thoracic region; Z96.642 Presence of left artificial hip joint ==

== ENCOUNTER → 2017-10-15 | Outpatient (CLI) | payer OTHER | LOC: FIMAGING 13:45 | PROVIDERS: ATTEND Physician Assistant Medical | DX: Z13.828 Encounter for screening for other musculoskeletal disorder (principal) ==

== ENCOUNTER 2018-08-27 10:53 | Emergency (ER) | payer OTHER ==
--- NOTE | 2018-08-27 11:43 | EDPHY ---
HPI/HX/ROS/PE/MDM Narrative: CHIEF COMPLAINT: Right shoulder pain HPI: The patient is a 62 y/o female complaining of right shoulder and upper back pain secondary to a fall 5 days ago. She describes a slip and fall down 15 wooden steps while in [place] over the holiday. She struck her head and right shoulder during the fall, but denies loss of consciousness, weakness, paresthesias. She was able to get up immediately after the fall and has been managing okay with the exception of her right shoulder, which she cannot lift to brush her hair without significant pain. She is also concerned about her left hip due to a prior hip replacement, but does not have acute pain there. She generally feels more fatigued than baseline as well. No anticoagulant use. REVIEW OF SYSTEMS: A comprehensive 10 system review of systems is otherwise negative aside from elements mentioned in the history of present illness. PMH: Left hip replacement. SOCIAL HISTORY: Lives in [place]. Single. Not employed. PHYSICAL EXAM: General:Patient is alert, in no acute distress. ENT:Eyes are normal to inspection. ENT inspection normal. Neck: Normal inspection. Full range of motion. Respiratory:No respiratory distress. Breath sounds normal bilaterally. Cardiovascular: Regular rate and rhythm. Strong peripheral pulses. Normal cap refill. Abdomen:The abdomen is nontender to palpation. There are no peritoneal signs. Back: Right flank tenderness, otherwise normal to inspection and no tenderness to palpation. Skin: Normal color. No rash. Warm and dry. Extremities: Tenderness along spine of right scapula, right shoulder ROM limited due to pain. Otherwise normal appearance and full range of motion. Neuro: Oriented x3. Normal motor function. Normal sensory function. ED Course: This is a 62 y/o female who presents with right scapula tenderness secondary to a fall down wooden steps 5 days ago. She has pain with ROM of her right shoulder. Lungs are clear to auscultation. No visible trauma noted and she is neurovascularly intact. Plan for x-ray imaging of right shoulder, scapula, ribs , and left hip. Left hip x-ray: nothing acute Right scapula/shoulder x-rays: fracture of inferior tip Right rib x-rays: negative for fracture Reassessed patient and discussed findings. She will be discharged home in a sling with a script for [employer] and standard fracture care and follow up instructions. Return precautions discussed. She is comfortable with this plan. - Data Points Imaging Results: Imaging Impressions Hip X-Ray 08/27/18 11:17 Impression: No evidence for acute fracture. Postsurgical changes of left total hip arthroplasty. Heterotopic ossification and osseous hypertrophy of the lesser trochanter. Other chronic findings as above. Scapula X-Ray 08/27/18 11:17 Impression: Mildly displaced fracture of the inferior tip of the scapula. Shoulder X-Ray 08/27/18 11:17 Impression: Mildly displaced fracture of the inferior tip of the scapula. Ribs X-Ray 08/27/18 11:23 Impression: No evidence for right rib fracture. Imaging: I viewed and interpreted images myself General Time Seen by Provider: 08/27/18 11:17 Initial Vital Signs: Initial Vital Signs Temperature (C) 36.4 C 08/27/18 11:01 Heart Rate 74 08/27/18 11:01 Respiratory Rate 16 08/27/18 11:01 Blood Pressure 122/87 H 08/27/18 11:01 O2 Sat (%) 96 08/27/18 11:01 O2 Delivery Mode Room Air Allergies/Adverse Reactions: No Known Allergies Allergy (Verified 01/04/17 06:53) Home Medications: Medication Instructions Recorded Gabapentin [Neurontin 300 MG (*)] 300 mg PO HS 01/04/17 Methylphenidate HCl [Ritalin 20mg 20 mg PO BID 01/04/17 (*)] traMADol [Ultram 50 mg (*)] 50 mg PO Q6HRS PRN 01/04/17 Hydrocodone/APAP 5/325 [[employer] 1 - 2 tab PO Q4H PRN #10 tab 08/27/18 5/325 (RX)] Departure - Departure Disposition: Home, Routine, Self-Care Clinical Impression: Scapula fracture Qualifiers: Encounter type: initial encounter Scapula location: body Fracture type: closed Fracture alignment: displaced Laterality: right Qualified Code(s): S42.111A - Displaced fracture of body of scapula, right shoulder, initial encounter for closed fracture Condition: Good Instructions: Scapular Fracture (ED) Additional Instructions: 1. Ibuprofen as directed on the packaging as needed for pain over the next several days. 2. Take [employer] as prescribed when needed for severe pain. This medication is a narcotic and can cause constipation and drowsiness. Do not use prior to driving. Do not use Tylenol while taking this medication. 3. Follow up with orthopedist in the next 2-3 days. 4. Wear sling if more comfortable. 5. Return to the ED for weakness or numbness in your fingers, or other worsening of condition. Referrals: Hiren Peguero MD [Medical Doctor] - As per Instructions Prescriptions: Hydrocodone/APAP 5/325 [[employer] 5/325 (RX)] 1 - 2 tab PO Q4H PRN #10 tab PRN Reason: Pain, Moderate Report Scribed for: Pablo Rosales Report Scribed by: Corry Chin Date of Report: 08/27/18 Time of Report: 12:11 Physician Review and Approval Statement: Portions of this note were transcribed by an ED scribe. I personally performed the history, physical exam, and medical decision making; and confirm the accuracy of the information in the transcribed note.
[2018-08-27 12:34] VITALS: BP 117/86
== END 2018-08-27 12:33 | disposition home or self-care (01) ==
DX: S42.111A Displaced fracture of body of scapula, right shoulder, initial encounter for closed fracture (principal); S09.90XA Unspecified injury of head, initial encounter; W10.8XXA Fall (on) (from) other stairs and steps, initial encounter; Y92.9 Unspecified place or not applicable; Y93.9 Activity, unspecified; Y99.9 Unspecified external cause status; Z96.642 Presence of left artificial hip joint